=== PATIENT | female | born 1995 | race Two or more races ===

== ENCOUNTER 2024-03-16 09:23 | Emergency (ER) | payer MEDICAID, OTHER ==
[~2024-03-16] VITALS: Ht 160 cm; Wt 58.9 kg
[2024-03-16] MEDS ORDERED: CEPH500C PO (10:14)
[2024-03-16] MEDS ORDERED: TOB03OS OP (10:14)
--- NOTE | 2024-03-16 10:22 | ED.PDOC ---
Eye-HPI HPI Comments A 28 YEAR OLD FEMALE PRESENTS TO THE ED WITH COMPLAINT OF EYELID SWELLING. PATIENT REPORTS THAT SHE HAS BEEN EXPERIENCING SWELLING, REDNESS, AND ITCHINESS OF THE LEFT UPPER EYELID SINCE WEDNESDAY. PATIENT RELAYS THAT SHE BELIEVES IT IS A STYE, SO SHE HAS BEEN APPLYING WARM COMPRESS TO THE EYE, BUT MINIMAL RELIEF HAS BEEN NOTED. PATIENT STATES SHE VISITED YESTERDAY AND WAS TOLD IT WAS AN INFECTION, PRESCRIBED ANTIBIOTIC OINTMENT, AND TOLD TO APPLY COLD COMPRESS INSTEAD. PATIENT DENIES FEVER, BLURRED VISION, DISCHARGE, BLEEDING, HEADACHE, OR OTHER COMPLAINTS. NO OTHER SYMPTOMS OR MODIFYING FACTORS AT THIS TIME. Chief Complaint: Eye Problem Time Seen by MD: 10:18 Reviewed Notes: Nurses Notes, Medications, Allergies Allergies: Coded Allergies: NO KNOWN ALLERGIES (Unverified , 03/16/24) Home Meds Active Scripts Cephalexin Monohydrate (Cephalexin) 500 Mg Cap, 1 CAP PO BID, #21 CAP Prov:JO MUÑOZ 03/16/24 Tobramycin Sulfate (Tobrex) [address], 2 DROP OP QID, #5 ML Prov:JO MUÑOZ 03/16/24 Information Source: Patient Mode of Arrival: Ambulatory Timing: Days Duration: Since onset Prehospital treatment: None Quality: Pain, Red Eye Location: Left, Upper Lids: Location (LEFT UPPER EYELID), Red, Swelling Conjunctiva: Normal Cornea: Normal Pupils: Normal EOM: Normal Fundus: Normal Anterior chamber: Normal Mouth: Normal ENT Ear Exam: Normal, Normal, Normal Nose: Normal Sinuses: Normal Oropharynx: Normal Onset: Spontaneous Throat Exposed to: None Eye Context Recent: Antibiotic Use History of: None Last Tetanus: Unknown Modifying factors: Nothing Past Medical History PAST MEDICAL HISTORY: Denies Surgical History: Denies all surgeries CONFIGURATION CONSULTANT History: No Pertinent CONFIGURATION CONSULTANT History Family History Family History: Reviewed,noncontributory to illness Social History Smoker: Non-Smoker Alcohol: Denies ETOH Use Drugs: Denies Drug Use Lives In: Home Constitutional: denies: chills, diaphoresis, fatigue, fever, malaise, sweats, weakness, others EENTM: reports: eye pain, others (STYE TO UPPER LEFT EYELID); denies: blurred vision, double vision, ear bleeding, ear discharge, ear drainage, ear pain, ear ringing, eye redness, hearing loss, mouth pain, mouth swelling, nasal discharge, nose bleeding, nose congestion, nose pain, photophobia, tearing, throat pain, throat swelling, voice changes Respiratory: denies: cough, hemoptysis, orthopnea, SOB at rest, shortness of breath, SOB with excertion, stridor, wheezing, others Cardiovascular: denies: chest pain, dizzy spells, diaphoresis, Dyspnea on exertion, edema, irregular heart beat, left arm pain, lightheadedness, palpitations, PND, syncope, others Gastrointestinal: denies: abdomen distended, abdominal pain, blood streaked bowels, constipated, diarrhea, dysphagia, difficulty swallowing, hematemesis, melena, nausea, poor appetite, poor fluid intake, rectal bleeding, rectal pain, vomiting, others Genitourinary: denies: abnormal vagina bleeding, burning, dyspareunia, dysuria, flank pain, frequency, hematuria, incontinence, pain, , vagina discharge, urgency, others Neurological: denies: dizziness, fainting, headache, left sided numbness, left sided weakness, numbness, paresthesia, pre-existing deficit, right sided nu mbness, right sided weakness, seizure, speech problems, tingling, tremors, weakness, others Musculoskeletal: denies: back pain, gout, joint pain, joint swelling, muscle pain, muscle stiffness, neck pain, others Integumetry: denies: bruises, change in color, change in hair/nails, dryness, laceration, lesions, lumps, rash, wounds, others Allergic/Immunocompromised: denies: Difficulty Healing, Frequent Infections, Hives, Itching, others Hematologic/Lymphatic: denies: anemia, blood clots, easy bleeding, easy bruising, swollen glands, others Endocrine: denies: excessive hunger, excessive sweating, excessive thirst, excessive urination, flushing, intolerance to cold, intolerance to heat, unexplained weight gain, unexplained weight loss, others Psychiatric: denies: anxiety, bipolar disorder, depression, hopeless, panic disorder, schizophrenia, sleepless, suicidal, others All Other Systems: Reviewed and Negative Physical Exam General Appearance: No Apparent Distress, Normal HEENT: Eye Lid (L) (A SMALL STYE ON LEFT UPPER EYELID WITH LOCALIZED REDNESS AND MILD SWELLING. ), Normal ENT Inspection, PERRL/EOMI Neck: Full Range of Motion, Non-Tender, Normal, Normal Inspection Respiratory: Chest Non-Tender, Lungs Clear, No Accessory Muscle Use, No Respiratory Distress, Normal Breath Sounds Cardiovascular: No Edema, No JVD, No Murmur, No Gallop, Normal Peripheral Pulses, Regular Rate/Rhythm Breast Exam: Deferred Gastrointestinal: No Organomegaly, Non Tender, No Pulsatile Mass, Normal Bowel Sounds, Soft Genitalia: Deferred Pelvic: Deferred Rectal: Deferred Extremities: No calf tenderness, Normal capillary refill, Normal inspection, Normal range of motion, Non-tender, No pedal edema Musculoskeletal : Apperance: Normal Neurologic: Alert, string laster II-XII nml as Tested, No Motor Deficits, Normal Affect, Normal Mood, No Sensory Deficits Cerebellar Function: Normal Reflexes: Normal Skin: Dry, Normal Color, Warm Peripheral Pulses: 2+ carotid (R), 2+ carotid (L) Lymphatic: No Adenopathy Was a procedure done? Was a procedure done?: No EENT DIFF Eye: Conjunctivitis, Allergic, Viral, Hordeolum (stye) X-Ray, Labs, Meds, VS Vital Signs Date Time Temp Pulse Resp B/P (MAP) Pulse Ox O2 Delivery O2 Flow Rate FiO2 03/16/24 09:38 99.2 85 16 122/82 (95) 98 Time of 1ST Reevaluation: 10:25 Reevaluation 1ST: Improved Patient Education/Counseling: Diagnosis, Treatment, Need For Follow Up Family Education/Counseling: Diagnosis, Treatment, Need For Follow Up Medical Screening: No EMC Exist At This Time Departure 1 Departure Time of Disposition: 10:25 Impression: Primary Impression: Hordeolum internum of left upper eyelid Disposition: 01 HOME / SELF CARE / HOMELESS Condition: Stable Additional Instructions: FOLLOW-UP WITH PCP IN 1 TO 2 DAYS. TAKE MEDICATIONS PRESCRIBED. RETURN TO ED FOR ANY NEW OR WORSENING SYMPTOMS. e-Prescriptions Cephalexin Monohydrate (Cephalexin) 500 Mg Cap 1 CAP PO BID, #21 CAP Prov: JO MUÑOZ 03/16/24 Tobramycin Sulfate (Tobrex) [address] 2 DROP OP QID, #5 ML Prov: JO MUÑOZ 03/16/24 Discharged With: Self Critical Care Note Critical Care Time?: No Stability Stability form required: No Heart Score Heart Score: Heart Score Response (Comments) Value History N/A 0 EKG N/A 0 Age N/A 0 Risk Factors N/A 0 Troponin N/A 0 Total 0 I personally scribed for JO MUÑOZ ([email or web address]) on 03/16/24 at 10:22. Electronically submitted by Ross Carlos ([email or web address]). JO MUÑOZ Mar 16, 2024 10:22
[2024-03-16 10:31] VITALS: BP 129/89; PULSE 89; RESP 19; TEMP 98.9; O2SAT 98
== END 2024-03-16 10:33 | disposition home or self-care (01) ==
LOC: ER 09:23
DX: H00.024 Hordeolum internum left upper eyelid (principal)